=== PATIENT | female | born 1950 | race Caucasian/White ===

== ENCOUNTER → 2017-05-12 | Outpatient (CLI) | payer OTHER, MEDICAID ==
[~2017-05-12] MED LIST: CATAPRES-TTS 10.1 M1 TD; ESTRACE1 MG PO; LEVOTHYROXIN0.125 M1 PO; POTASSIUM CHLO10 ME1 PO; PROCARDIA XL60 MG PO; XANAX 0.5 MG0.5 MG PO; ZOLOFT50 MG PO
== END ==
LOC: M.RAD 04-14 15:14
DX: N63.10 Unspecified lump in the right breast, unspecified quadrant (principal); N63.20 Unspecified lump in the left breast, unspecified quadrant; R92.8 Other abnormal and inconclusive findings on diagnostic imaging of breast

== ENCOUNTER → 2018-10-28 | Outpatient (CLI) | payer OTHER, MEDICAID | LOC: M.RAD 11:19 | DX: Z12.31 Encounter for screening mammogram for malignant neoplasm of breast (principal) ==

== ENCOUNTER → 2020-11-15 | Outpatient (CLI) | payer OTHER, MEDICAID | LOC: M.RAD 13:10 | PROVIDERS: ATTEND Registered Nurse Diabetes Educator | DX: Z12.31 Encounter for screening mammogram for malignant neoplasm of breast (principal) ==

== ENCOUNTER → 2021-01-15 | Outpatient (CLI) | payer OTHER, MEDICAID | LOC: M.ULTRA 13:30 | PROVIDERS: ATTEND Internal Medicine Nephrology | DX: N28.1 Cyst of kidney, acquired (principal); N18.31 Chronic kidney disease, stage 3a ==